=== PATIENT | female | born 1990 | race Caucasian/White ===

== ENCOUNTER → 2017-11-15 | Outpatient (CLI) | payer OTHER | LOC: M SMT 11:09 | DX: M54.5 Low back pain (principal) | CPT/HCPCS: 72100 ==

== ENCOUNTER → 2018-04-08 | Outpatient (REF) | payer OTHER ==
[2018-04-13 14:58] LABS: HPV HYBRID CAPTURE II Positive (Negative)
== END ==
LOC: M SFHCWAGY 14:40
DX: Z01.411 Encounter for gynecological examination (general) (routine) with abnormal findings (principal); R85.610 Atypical squamous cells of undetermined significance on cytologic smear of anus (ASC-US); Z11.51 Encounter for screening for human papillomavirus (HPV)
CPT/HCPCS: 88142

== ENCOUNTER → 2018-05-02 | Outpatient (REF) | payer OTHER | LOC: M SFHCWAGY 14:48 | DX: R87.810 Cervical high risk human papillomavirus (HPV) DNA test positive (principal); R87.612 Low grade squamous intraepithelial lesion on cytologic smear of cervix (LGSIL) ==

== ENCOUNTER → 2018-05-16 | Outpatient (REF) | payer OTHER ==
[2018-05-16 12:01] LABS: BASO % 0.3 % (0.0-1.0); EOS # 0.2 10^3/uL (0.0-0.50); EOS % 3.5 % (0.0-3.0); HEMATOCRIT 46.8 % (36.0-47.0); HEMOGLOBIN 15.9 g/dl (12.0-15.5); IMMATURE GRANULOCYTE % 0.2 % (0-3.0); LYMPH # 1.7 10^3/uL (1.5-6.5); LYMPH % 28.4 % (24.0-44.0); MEAN CORPUSCULAR HEMOGLOBIN 34.5 pg (27.0-33.0); MEAN CORPUSCULAR VOLUME 101.5 fl (80.0-96.0); MONO # 0.7 10^3/uL (0.0-0.8); MONO % 10.9 % (0.0-5.0); NEUTROPHILS # 3.4 10^3/uL (1.8-7.7); NEUTROPHILS % 56.7 % (36.0-66.0); PLATELET COUNT, AUTOMATED 248 10^3/uL (150-450); RED BLOOD COUNT 4.61 10^6/uL (4.00-5.40); RED CELL DISTRIBUTION WIDTH 13.6 % (11.5-14.5); WHITE BLOOD COUNT 6.1 10^3/uL (4.0-10.0)
[2018-05-16 12:13] LABS: FERRITIN 53 NG/ML (8-252); IRON (FE) 103 UG/DL (50-170); PERCENT SATURATION 27.9 % (13.2-45.0); TOTAL IRON BINDING CAPACITY 369 UG/DL (250-450)
== END ==
LOC: M SFHCPLAZ 08:43
DX: D50.9 Iron deficiency anemia, unspecified (principal)

== ENCOUNTER → 2020-02-13 | Outpatient (CLI) | payer SELFPAY | LOC: M OUTALCOH 08:50 | PROVIDERS: ATTEND Psychiatry & Neurology Addiction Medicine | DX: F10.20 Alcohol dependence, uncomplicated (principal) ==

== ENCOUNTER → 2020-03-01 | Outpatient (CLI) | payer OTHER, SELFPAY ==
--- NOTE | 2020-03-01 14:18 | REP ---
REASON: Pain. COMPARISON: No priors. FINDINGS: No acute fracture or destructive osseous lesion. The mortise is intact. Electronically Signed by Enoc Michelle DO 03/01/2020 03:10 P
--- NOTE | 2020-03-01 14:25 | REP ---
REASON: Pain. FINDINGS: The joint spaces are symmetric and relatively well maintained. There is no evidence of acute fracture or destructive osseous lesion. IMPRESSION: Negative. Electronically Signed by Enoc Michelle DO 03/01/2020 03:10 P
== END ==
LOC: M LRY 11:53
PROVIDERS: ATTEND Physician Assistant
DX: S99.922A Unspecified injury of left foot, initial encounter (principal); X58.XXXA Exposure to other specified factors, initial encounter; Y92.89 Other specified places as the place of occurrence of the external cause; Y93.9 Activity, unspecified; Y99.9 Unspecified external cause status

== ENCOUNTER → 2020-05-14 | Outpatient (REF) | payer MEDICAID, SELFPAY | LOC: M SFHCWAGY 11:30 | PROVIDERS: ATTEND Nurse Practitioner Women's Health | DX: Z12.4 Encounter for screening for malignant neoplasm of cervix (principal) ==